=== PATIENT | female | born 1980 | race African-American/Black ===

== ENCOUNTER 2016-10-07 17:47 | Inpatient (IN) | payer BC, OTHER ==
[~2016-10-07] VITALS: Ht 162.6 cm; Wt 77.6 kg
--- NOTE | ~2016-10-07 | O ---
[facility] [place] [address] OPERATIVE REPORT Name: SOCRATES JIMENES Room #: 538-P ADM IN M.R.#: [id number] Admission: 10/07/16 Attend Phys: Jose Hurst MD, F Discharge: Date of : 80 Report #: [id number] THIS REPORT FOR: //name// CC: Jose Murphy DATE OF SERVICE: 10/07/2016 PREOPERATIVE DIAGNOSIS: Acute appendicitis. POSTOPERATIVE DIAGNOSIS: Acute appendicitis. OPERATIVE PROCEDURE: Laparoscopic appendectomy. SURGEON: Jose Hurst MD. BRA[employer]ER [employer]: CUONG Nguyen. INDICATIONS: A 35-year-old lady with 36 hours of abdominal pain, localized right lower quadrant. CT scan is consistent with early appendicitis. OPERATIVE PROCEDURE: The patient had thorough discussion of the procedure, benefits and risks. She gave informed consent to proceed. She was given preoperative IV antibiotics. She was brought to the operating room suite and had satisfactory induction of general endotracheal anesthesia. The patient's entire abdomen was prepped and draped in usual sterile procedure with DuraPrep solution. After draping was completed, an appropriate timeout was then performed. 0.5% plain Naropin was injected at the infraumbilical port sites. 0.5% 30 mL was utilized during the procedure. Initially, an open cutdown procedure was performed through the fascia at the umbilicus. The Hermelindo trocar was introduced under direct vision. Pneumoperitoneum was established. A left lower quadrant 5 mm trocar port and a lower midline 5 mm trocar port were then placed under direct vision. Inspection of the peritoneal cavity demonstrated the appendix to be in an inferior cecal position. The distal one-third, distal one-half was swollen, edematous and with early exudate formation consistent with appendicitis. A window was made in the mesoappendix. The base of the appendix was crossclamped, ligated and divided with the GALINA laparoscopic endoscopic device 30 mm white load. The mesoappendix was taken down and controlled with the LigaSure device. After transection of the appendix, it was placed into an Endobag and removed from the peritoneal cavity. Under direct vision, the PDS suture passer was utilized to place a [id number] 0 PDS suture at the infraumbilical port site. Photographs were taken and made part of the medical record. The appendiceal stump was dry. No irrigation was utilized. The 5 mm trocar ports were then removed under direct vision. The pneumoperitoneum was evacuated. The 0 PDS suture was ligated in place at the infraumbilical port site. Skin margins were approximated with subcuticular 4-0 Monocryl. The [address] [address] OPERATIVE REPORT Name: SOCRATES JIMENES Room #: 538-P [facility] IN M.R.#: [id number] Admission: 10/07/16 Attend Phys: Jose Hurst MD, F Discharge: Date of : 80 Report #: [id number] estimated blood loss was less than 5 mL. The patient tolerated the procedure well and she returned directly to recovery room in stable and satisfactory condition. By: [id number] Jose Hurst MD, FACS /nt
--- NOTE | ~2016-10-07 | S ---
[facility] [place] [address] SURGICAL PATH RPT PROCEDURE Name: SOCRATES MARQUIS SHRADDHA Room #: 538-P DIS IN M.R.#: [id number] Admission: 10/07/16 Date of : 80 Discharge: 10/08/16 Report #: [id number] Path Case #: [id number] PATHOLOGY REPORT COLLECTION DATE: 10/07/2016 RECEIVED DATE: 10/08/2016 SUBMITTING PHYS: Dr. Jose Hurst OTHER PHYS: Dr. Mark Seth SPECIMEN(S) RECEIVED: A.Appendix * * * * * * * * * * * * FINAL DIAGNOSIS: "Appendix," appendectomy: - Acute appendicitis with patchy fibrinous acute serositis. (CLW:; d/t: 10/11/16) PATHOLOGIST: Bria Lopes M.D. REPORT ELECTRONICALLY SIGNED BY: Bria Lopes M.D. DATE/TIME: 10/11/2016 22:41 * * * * * * * * * * * * GROSS PATHOLOGY: Received in formalin labeled "Socrates Marquis, appendix," is an appendix measuring 7.6 cm in length and 1.3 cm in diameter with a moderate amount of attached mesoappendix. The serosal surface is light hobbs to pink-hobbs displaying minimal vascularization. Sectioning reveals a dilated lumen filled with light hobbs fibrinopurulent exudate. Store Sales Consultant sections are submitted as follows: A1 proximal margin and entire bisected tip A2 additional cross sections of appendix. (KAH; 10/08/2016) CLINICAL HISTORY: acute appendicitis, nonperforated INITIAL CPT CODE(S): A; 76519 Professional services performed by [facility] at [facility] [address], [place] [address] Technical services performed by [facility] at [address] [place] [address] [place] [address] SURGICAL PATH RPT PROCEDURE Name: SOCRATES MARQUIS SHRADDHA Room #: 538-P DIS IN M.R.#: [id number] Admission: 10/07/16 Date of : 80 Discharge: 10/08/16 Report #: [id number] Path Case #: [id number] [place] [address]. [facility] [address] [place] [address] PHONE: [phone] DIRECTOR: Ernst Mccoy M.D. * * * END OF REPORT * * *
--- NOTE | ~2016-10-07 | H ---
[facility] [place] [address] HISTORY AND PHYSICAL Name: SOCRATES JIMENES Room #: 170-7 ADM IN M.R.#: [id number] Admission: 10/07/16 Attend Phys: Jose Hurst MD, F Discharge: Date of : 80 Report #: [id number] THIS REPORT FOR: //name// CC: Jose Murphy DATE OF SERVICE: 10/07/2016 HISTORY OF PRESENT ILLNESS: This 35-year-old -English lady has presented to the Emergency Department from her family physician with a CT scan that is positive for appendicitis. The patient had the onset of periumbilical pain on Tuesday p.m., approximately 48 hours ago. The pain continued throughout the day on Tuesday and then progressively worsened by a.m. She denies nausea and vomiting. She has had no previous gastrointestinal disease. She presented to her family doctor, who ordered a CT scan, which demonstrated, and was consistent with acute appendicitis. PAST MEDICAL HISTORY: Surgical illnesses: Tubal ligation and laparoscopic cholecystectomy. Medical illnesses: None. MEDICATIONS: None currently. ALLERGIES: Denies any known drug allergies. FAMILY HISTORY: Maternal hypertension. SOCIAL HISTORY: She denies cigarette smoking or excessive ingestion of alcohol. No illegal drugs. She works currently at [employer]. REVIEW OF SYSTEMS: A 10-point review of systems was essentially noncontributory except for recent change with the gastrointestinal function, obstipation and the abdominal pain. PHYSICAL EXAMINATION: GENERAL: Reveals an alert, cooperative lady, resting comfortably in bed. Her is at the bedside. She is afebrile. VITAL SIGNS: Within normal limits. HEENT: Pupils are equal, round, and reactive to light. Extraocular movements normal. No scleral icterus. NECK: Supple, full range of motion. LUNGS: Clear at the bases bilaterally. CARDIOVASCULAR: Regular rate and rhythm. ABDOMEN: Tenderness in the right lower quadrant with guarding and rebound. Suggestion of positive Rovsing's sign. [facility] [address] [place] [address] HISTORY AND PHYSICAL Name: [facility] Room #: 1707 ADM IN [facility].#: [id number] Admission: 10/07/16 Attend Phys: Jose Hurst MD, F Discharge: Date of : 80 Report #: [id number] NEUROLOGIC: She is oriented times 3, bilateral motor symmetry. LABORATORY DATA: CT scan is consistent with early appendicitis. White blood cell count within normal limits. DIAGNOSIS: Acute appendicitis. PLAN: Laparoscopic appendectomy today. <ELECTRONICALLY SIGNED> By: Jose Hurst MD, FACS 10/07/162202 30 09 Jose Hurst MD, FACS /nt
[2016-10-07 17:48] VITALS: BP 134/87
[2016-10-07 18:31] LABS: ABSOLUTE NEUTROPHILS 5.2 thou/uL (1.4-8.2); BASOPHILS 0.6 % (0.0-2.0); EOSINOPHILS 1.8 % (0.0-3.0); HEMATOCRIT 31.8 % (37.0-47.0); HEMOGLOBIN 10.5 gm/dL (12.0-15.0); MCHC 32.8 g/dL (28.0-37.0); MCV 85.2 fL (80.0-100.0); MONOCYTES 5.8 % (1.0-8.0); PLATELET COUNT 315 thou/uL (150-400); POLYS 64.8 % (36.0-66.0); RBC 3.74 mil/uL (4.20-5.00); RDW 14.5 % (10.5-14.5); WBC 8.1 thou/uL (4.0-11.0)
[2016-10-07 18:32] LABS: MANUAL DIFF NO
[2016-10-07 18:41] LABS: CALCIUM 8.2 mg/dL (8.5-10.1); CREATININE 0.9 mg/dL (0.6-1.0); POTASSIUM 3.4 mmol/L (3.5-5.1)
[2016-10-07 20:10] VITALS: BP 117/83
[2016-10-07 22:50] VITALS: BP 107/75
[2016-10-07 23:00] VITALS: BP 101/73
[2016-10-07 23:30] VITALS: BP 104/71
[2016-10-08] VITALS (8 sets, daily range): BP systolic 88–103; BP diastolic 56–71
[2016-10-08 03:37] LABS: HEMOGLOBIN 9.6 gm/dL (12.0-15.0); MCH 28.3 pg (26.0-34.0); MCHC 33.2 g/dL (28.0-37.0); MCV 85.1 fL (80.0-100.0); RBC 3.41 mil/uL (4.20-5.00); RDW 14.6 % (10.5-14.5); WBC 8.9 thou/uL (4.0-11.0)
[2016-10-08] MEDS ORDERED: NORCO 5-325 TA1 EACH PO (12:49)
[2016-10-08] MEDS ORDERED: ONDANSETRON HCL4 M2 PO (13:30)
== END 2016-10-08 15:20 | disposition home or self-care (01) | DRG 343 ==
LOC: ER 17:47 → EROBS 19:03 → 5S 19:03
PROVIDERS: Emergency Medicine; Surgery
PROC: 0DTJ4ZZ Resection of Appendix, Percutaneous Endoscopic Approach (ICD-10-PCS; principal; 2016-10-07)
DX: K35.89 Other acute appendicitis (principal); F17.210 Nicotine dependence, cigarettes, uncomplicated; Z90.49 Acquired absence of other specified parts of digestive tract; Z82.49 Family history of ischemic heart disease and other diseases of the circulatory system
CPT/HCPCS: 10086; 50010; 50101; 50249; 50411; 50555; 50739; 50740; 50944; 50962; 51975; 52265; 53307; 54022; 54118; 56525; 56526; 62110; 62900; 70005

== ENCOUNTER → 2016-10-07 | Outpatient (CLI) | payer BC, OTHER ==
[~2016-10-07] MED LIST: NORCO 5-325 TA1 EACH PO; ONDANSETRON HCL4 M2 PO
== END ==
LOC: CAT 14:53
DX: R10.9 Unspecified abdominal pain (principal)